=== PATIENT | male | born 1945 | race Caucasian/White ===

== ENCOUNTER 2022-02-14 10:26 | Day surgery (SDC) | payer MEDICARE, OTHER ==
[2022-02-10 09:27] LABS: BASOPHILS % (AUTO) 0.2 % (0-1); EOSINOPHILS % (AUTO) 0.1 % (0-6); HEMATOCRIT 33.2 % (42.0-52.0); HEMOGLOBIN 10.6 g/dl (14.0-17.9); LYMPHOCYTES # (AUTO) 0.8 X10'3 (1.1-4.8); LYMPHOCYTES % (AUTO) 4.7 % (21-51); MEAN CORPUSCULAR HEMOGLOBIN 30.4 PG (27.0-31.0); MEAN CORPUSCULAR HGB CONC 31.9 g/dL (33.0-36.5); MEAN CORPUSCULAR VOLUME 95.4 FL (78-98); MEAN PLATELET VOLUME 6.1 FL (7.4-10.4); MONOCYTES # (AUTO) 0.6 X10'3 (0-0.9); MONOCYTES % (AUTO) 3.6 % (2-12); NEUTROPHILS # (AUTO) 15.5 X10'3 (1.8-7.7); NEUTROPHILS % (AUTO) 91.4 % (42-75); PLATELET COUNT 304 X10'3 (140-440); RED BLOOD COUNT 3.48 X10'6 (4.70-6.10); RED CELL DISTRIBUTION WIDTH 16.6 % (11.5-14.5)
[2022-02-10 09:42] LABS: APTT 27 SECONDS (22-32)
[2022-02-10 09:44] LABS: ALBUMIN 3.4 G/DL (3.4-5.0); ANION GAP 10 (8-16); BLOOD UREA NITROGEN 11 MG/DL (7-18); BUN/CREATININE RATIO 9.7 (5.4-32.0); CALCIUM 9.1 MG/DL (8.5-10.1); CHLORIDE 103 MMOL/L (99-107); CHOL/HDL RATIO 3.5 (0.00-4.99); CHOLESTEROL 109 MG/DL (0-200); CREATININE 1.13 MG/DL (0.60-1.10); GLUCOSE 103 MG/DL (70-104); HDL CHOLESTEROL 31 MG/DL (35-60); LDL CHOLESTEROL 46 MG/DL (50-100); POTASSIUM 4.3 MMOL/L (3.5-5.1); SODIUM 138 MMOL/L (135-145); TOTAL CARBON DIOXIDE 24.8 MMOL/L (24-32); TRIGLYCERIDES 249 MG/DL (20-135); eGFR 63 ML/MIN
[~2022-02-14] VITALS: Ht 172.7 cm; Wt 87.0 kg
[2022-02-14] VITALS (7 sets, daily range): BP systolic 125–156; BP diastolic 70–79
[~2022-02-14 10:26] MED LIST: AMLO10TA2 PO; ASPI-1265 PO; CARV25TA2 PO
[2022-02-14] MEDS ORDERED: LORazepam 0.5 MG tablet PO PRN (10:45)
[2022-02-14] MEDS ORDERED: normal saline 1,000 ML IV SCH (10:45)
[2022-02-14] MEDS ORDERED: diphenhydrAMINE 25mg capsule PO PRN (10:45)
[2022-02-14] MEDS ORDERED: NITR0.4T48 SL (11:04)
[2022-02-14] MEDS ORDERED: LISI5TAB22 PO (11:06)
[2022-02-14] MEDS ORDERED: ALIR75PE5 SQ (11:06)
[2022-02-14] MEDS ORDERED: ENZA40TA PO (11:06)
[2022-02-14] MEDS ORDERED: LACT1CAP65 PO (11:14)
[2022-02-14] MEDS ORDERED: MAGN300C PEG (11:14)
[2022-02-14] MEDS ORDERED: PEGF6SYR (11:14)
[2022-02-14] MEDS ORDERED: CHOL100046 PO (11:14)
[2022-02-14] MEDS ORDERED: LEUP7.5S2 (11:14)
[2022-02-14] MEDS ORDERED: UBID50TA3 PO (11:14)
[2022-02-14] MEDS ORDERED: MULT-1085 PO (11:14)
[2022-02-14] MEDS ORDERED: OMEG-166 PO (11:14)
[2022-02-14] MEDS ORDERED: DENO120V (11:14)
[2022-02-14] MEDS ORDERED: DOCE20VI (11:14)
[2022-02-14] MEDS ORDERED: FENTANYL CITRATE/PF 50 MCG/1 ML VIAL ONE (12:11)
[2022-02-14] MEDS ORDERED: midazolam 1 mg/ML 2ml injection ONE (12:11)
[2022-02-14] MEDS ORDERED: nitroGLYCERIN-Tridil 50MG/D5W 250 ML IV ONE (12:11)
[2022-02-14] MEDS ORDERED: verapamil 2.5 mg/ml inj IV ONE (12:11)
[2022-02-14] MEDS ORDERED: heparin 1,000unit/ml 10ml vial 10 ML ONE (12:12)
[2022-02-14] MEDS ORDERED: iohexol 350MG/ML 100ml bottle IV ONE (12:12)
[2022-02-14] MEDS ORDERED: LIDOcaine 1% (10mg/ml) 2ml vial ONE (12:12)
[2022-02-14 13:15] LABS: ISTAT Hct MIX 30 %PCV (42-52); ISTAT O2 SATURATION MIX VENOUS 61 % (60-80); ISTAT SOURCE VEN
[2022-02-14 13:15] LABS: ISTAT HGB ART 10.2 g/dl (14.0-17.9); ISTAT Hct ART 30 %PCV (42-52); ISTAT O2 SATURATION ARTERIAL 93 % (95-98); ISTAT SOURCE ART
[2022-02-14] MEDS ORDERED: HYDROcodone/acetaminophen 5mg/325mg tablet PO PRN (14:00)
[2022-02-14] MEDS ORDERED: HYDROcodone/acetaminophen 10/325mg tab PO PRN (14:00)
== END 2022-02-14 15:30 | disposition home or self-care (01) ==
LOC: SSTAY O 10:26
PROVIDERS: ATTEND Student in an Organized Health Care Education/Training Program
DX: I35.0 Nonrheumatic aortic (valve) stenosis (principal); I25.10 Atherosclerotic heart disease of native coronary artery without angina pectoris; I10 Essential (primary) hypertension; Z96.642 Presence of left artificial hip joint; Z96.652 Presence of left artificial knee joint; Z98.52 Vasectomy status; Z79.899 Other long term (current) drug therapy; Z85.46 Personal history of malignant neoplasm of prostate; Z79.01 Long term (current) use of anticoagulants
CPT/HCPCS: 36415; 80048; 80061; 82803; 85014; 85025; 85610; 85730; 93005; 93456; 99152; 99153; C1769; C1894; J1644; J2250; J3010; J3490; J7030; Q0163; Q9967; A6258; A6402; C1751